=== PATIENT | female | born 1980 | race Caucasian/White ===

== ENCOUNTER 2018-11-01 12:02 | Emergency (ER) | payer SELFPAY ==
[~2018-11-01] VITALS: Ht 167.6 cm; Wt 81.0 kg
[2018-11-01 12:05] VITALS: BP 135/63; PULSE 83; RESP 18; Ht 167.6 cm; Wt 81.0 kg
== END 2018-11-01 14:55 | disposition left against medical advice (07) ==
LOC: E/R 12:02
DX: Z53.21 Procedure and treatment not carried out due to patient leaving prior to being seen by health care provider (principal)

== ENCOUNTER 2018-11-02 12:17 | Inpatient (IN) | payer MEDICAID ==
[~2018-11-02] VITALS: Ht 167.6 cm; Wt 81.0 kg
[2018-11-02] MEDS ORDERED: SOD CHLORIDE 0.9% 0 ML IV ONE (12:24)
--- NOTE | 2018-11-02 12:55 | ERD ---
ER Documentation Chief Complaint Chief Complaint PT HERE FOR BLOOD TRANSFUSION, LOW H/H, HX OF BILAT BREAST CA HPI This is a 38-year-old female presents for evaluation of anemia with a hemoglobin of 6.3, patient was recently diagnosed with bilateral breast cancer, she is not currently on chemotherapy. She denies history of anemia, she has had no chest pain or shortness of breath. She denies fever, no nausea vomiting ROS All systems reviewed and are negative except as per history of present illness. Medications Home Meds No Active Prescriptions or Reported Meds Allergies Allergies: Coded Allergies: aspirin (Verified Allergy, Unknown, 11/02/18) Physical Exam Vitals Vital Signs Date Temp Pulse Resp B/P (MAP) Pulse Ox O2 O2 Flow FiO2 Time Delivery Rate 11/02/18 98.2 76 11 127/76 100 Room Air 15:20 (93) 11/02/18 97.8 69 14 110/87 100 Room Air 15:00 (95) 11/02/18 70 18 118/87 100 Room Air 14:00 (97) 11/02/18 73 16 125/71 100 Room Air 13:00 (89) 11/02/18 98.0 77 18 131/66 100 12:20 (87) Physical Exam Const: No acute distress Head: Atraumatic Eyes: Normal Conjunctiva ENT: Normal External Ears, Nose and Mouth. Neck: Full range of motion. No meningismus. Resp: Clear to auscultation bilaterally Cardio: Regular rate and rhythm, no murmurs Abd: Soft, non tender, non distended. Normal bowel sounds Skin: No petechiae or rashes Back: No midline or flank tenderness Ext: No cyanosis, or edema Neur: Awake and alert Psych: Normal Mood and Affect Result Diagram: 11/02/18 1249 Results 24 hrs Laboratory Tests Test 11/02/18 12:49 11/02/18 12:54 Hemoglobin 6.3 g/dl Hematocrit 23.3 % Platelet Count 220 10^3/UL Prothrombin Time 13.2 Sec Prothrombin Time Ratio 1.0 INR International Normalized Ratio 0.99 Activated Partial Thromboplast Time 32.0 Sec Fibrinogen 332.0 mg/dl Iron Level 16 ug/dl Total Iron Binding Capacity 469 ug/dl Percent Iron Saturation 3 % SAT Ferritin 4.1 ng/ml Vitamin B12 Level 584 pg/ml Current Medications Medications Dose Sig/Uma Start Time Status Last (Trade) Ordered Route PRN Stop Time Admin Dose Reason Admin Sodium 0 ml @ 0 Q0M ONCE 11/02/18 DC 11/02/18 Chloride mls/hr IV 12:24 12:24 11/02/18 12:26 Procedures/MDM 38-year-old female presents for evaluation of anemia. On exam patient is afebrile, nontoxic-appearing, she appears in no acute distress, her hemoglobin was confirmed here, is that she will be transfused for 2 units of packed red blood cells. Patient will be admitted to medicine team, Dr. Patterson is the admitting physician. Departure Diagnosis: Primary Impression: Anemia Anemia type: unspecified type Qualified Codes: D64.9 - Anemia, unspecified Additional Impression: Breast cancer Breast location: unspecified site of breast Estrogen receptor status: unspecified Patient sex: female Laterality: bilateral Qualified Codes: C50.911 - Malignant neoplasm of unspecified site of right female breast; C50.912 - Malignant neoplasm of unspecified site of left female breast Condition: ELVIRA Wilkerson MD Nov 02, 2018 12:55
[2018-11-02 17:41] VITALS: Ht 167.6 cm; Wt 81.0 kg
--- NOTE | 2018-11-02 18:00 | NUR ---
ADMITTED PATIENT FROM ER VIA WHEELCHAIR AWAKE/ALERT/ORIENTED X 4, WITH COMPLAINT OF LOW HEMOGLOBIN. PLACED COMFORTABLY IN BED, VITALS STABLE. DENIES PAIN. CALLED DR MORALES WITH ORDER. DR CAIN AND DR CUEVAS NOTIFIED, DR SAMUELS NOTIFIED THRU LISA.
--- NOTE | 2018-11-02 19:39 | HP ---
DATE OF ADMISSION: 11/02/2018 CHIEF COMPLAINT: Generalized weakness and fatigue. HISTORY OF PRESENT ILLNESS: The patient is a 38-year-old female who was diagnosed with bilateral lorelei ast cancer on biopsy done as an outpatient. The patient is followed by Dr. Morales as an outpatient. The patient recently was noted to have anemia and her hemoglobin has dropped to 6.3 today. The patie nt is being admitted for blood transfusion because of symptomatic anemia. The patient denied any hea dache, dizziness, syncope. The patient gets short of breath on exertion and easily gets tired. The patient did not have any rectal bleed. No history of hematemesis. No history of menorrhagia. The p atient was sent to ER and was noted to have hemoglobin of 6.3. Iron panel also revealed iron deficie ncy anemia as evidenced by a ferritin of only 4.1. Vitamin B12 level is 584. The patient is being a dmitted for further evaluation and management. PAST MEDICAL HISTORY: As stated above. ALLERGIES: ASPIRIN. SOCIAL HISTORY: No smoking or alcohol. FAMILY HISTORY: Negative for breast or ovarian CA. MEDICATIONS PRIOR TO ADMISSION: None. PHYSICAL EXAMINATION: GENERAL: Revealed the patient to be awake, alert, fairly oriented. VITAL SIGNS: Temperature 97.3, pulse 65, respiration 12, blood pressure 109/55, O2 saturation 99% on room air. HEENT: Atraumatic, normocephalic. Conjunctivae are pale. Lids are normal. Oropharynx with pale mu cosa. NECK: Supple. No mass, no thyromegaly. CHEST: Fairly clear. CARDIOVASCULAR: S1, S2 normal. No murmur. ABDOMEN: Soft, nondistended, nontender. No palpable mass. EXTREMITIES: No leg edema. NEUROLOGIC: The patient is awake, alert, fairly oriented with no gross focal deficit. LABORATORY DATA: Hemoglobin 6.3, platelet 220. Iron 46, TIBC 469, percent saturation 3, ferritin 4. 1. B12 of 584. IMPRESSION: 1. Symptomatic iron deficiency anemia. 2. Bilateral breast cancer. PLAN: The patient will be admitted on medical floor. The patient will be given 2 units of PRBC due to symptomatic anemia. The patient also needs a Port-A-Cath for chemotherapy, which will be started next week. We will order stool for OB to rule out any occult GI bleed. Further recommendation will depend on the patient's hospital course and recommendation of Dr. Morales. We will continue to follow from a medical standpoint. Dictated By: WU ALMANZAR/MARLA Conf#: [id number] DID#: [id number] CC: WILIAM MORALES MD;*EndCC*
--- NOTE | 2018-11-02 19:56 | NUR ---
DR CHANDRA CAME AND SEEN PATIENT WITH ORDER TO TRANSFUSE 1 UNIT MORE OF PRBC, AND TO COLLECT STOOL FOR OB, ENDORSED TO INCOMING [facility]ERTY TURNER FOR CONTINUATION OF CARE. Addendum: 11/02/18 at 1958 by DANTE VALENCIA RN BODY ASSESSMENT DONE WITH NO SKIN ISSUES.
[2018-11-02 19:58] VITALS: BP 105/76; PULSE 68; RESP 18
[2018-11-02 22:00] VITALS: BP 120/60; PULSE 83; RESP 14
[2018-11-02 22:15] VITALS: BP 123/63; PULSE 83; RESP 14
--- NOTE | 2018-11-02 22:15 | NUR ---
RN NOTES: Patient started with second unit of PC. VS WNL, recorded accordingly. IV access RAC asymptomatic with blood return. Patient agreeble to transfusion, signed consent present in the chart.Blood checked with second RN/ Julius prior to transfusion. RN remained with the patient for monitoring . So far patient tolerated transfusion well.
[2018-11-02 22:30] VITALS: BP 126/65; PULSE 80; RESP 14
[2018-11-02 23:00] VITALS: BP 117/67; PULSE 74; RESP 15
[2018-11-02] MEDS: DIPHENHYDRAMINE 50 MG INJ IV PRN (23:15)
[2018-11-02] MEDS: ACETAMINOPHEN 500 MG TAB PO PRN (23:17)
--- NOTE | 2018-11-02 23:25 | NUR ---
RN NOTE: Patient started feeling some itching in the arms and feet and some discomfort. Blood transfusion stoped and dr Romero was immediately informed, he ordered Benadryl 25 mg IV PRN, order was carried out and patient reported immediate relief. VS remained stable all the times. No other symptoms reported or observed.
[2018-11-02 23:30] VITALS: BP 120/65; PULSE 75; RESP 14
--- NOTE | 2018-11-02 23:45 | NUR ---
RN NOTE: Resumed blood transfusion at rate 100 ml/h, patient tolerate it well. VSS.
[2018-11-03 00:30] VITALS: BP 111/60; PULSE 80; RESP 18
[2018-11-03 00:45] VITALS: BP 112/68; PULSE 78; RESP 18
[2018-11-03 01:00] VITALS: BP 104/62; PULSE 70; RESP 16
--- NOTE | 2018-11-03 01:00 | NUR ---
RN NOTE: @ 00:25 Patient complained on occasional SOB, anxiety, general discomfort. All vital signs are WNL, patient alert and oriented x4, patient been monitored closely. Blood transfusion stoped, dr Romero notified immediately, blood transfusion reaction protocol initiated. Due to adverse reaction patient received only 200 ml of the blood unit.
[2018-11-03 03:06] VITALS: BP 106/58; PULSE 69; RESP 18
[2018-11-03] MEDS: ACETAMINOPHEN 500 MG TAB PO PRN (06:57)
[2018-11-03 07:50] VITALS: BP 102/56; PULSE 67; RESP 18
--- NOTE | 2018-11-03 12:05 | PN ---
Date/Time of Note Date/Time of Note DATE: 11/03/18 TIME: 12:04 Assessment/Plan VTE Prophylaxis Risk score (from [facility]0 risk: 2 SCD applied (from [facility]): No SCD contraindicated: other Pharmacological prophylaxis: LMWH Lines/Catheters IV Catheter Type ([facility] Saline Lock Assessment/Plan Hospital Course 1. Symptomatic iron deficiency anemia. - s/p 2 units but Hemoglobin is still low 2. Bilateral breast cancer. - await surgery to see patient Result Diagram: 11/03/18 0144 11/03/18 0144 Results 24hrs Laboratory Tests Test 11/02/18 12:49 11/02/18 12:54 11/03/18 01:44 11/03/18 07:04 Hemoglobin 6.3 *L 7.2 L Hematocrit 23.3 L 25.1 L Platelet Count 220 195 Prothrombin Time 13.2 Prothrombin Time 1.0 Ratio INR International 0.99 Normalized Ratio Activated 32.[address] Time Fibrinogen 332.0 Iron Level 16 L Total Iron Binding 469 H Capacity Percent Iron 3 L Saturation Ferritin 4.1 L Vitamin B12 Level 584 White Blood Count 5.9 Red Blood Count 3.85 L Mean Corpuscular 65.2 L Volume Mean Corpuscular 18.7 L Hemoglobin Mean Corpuscular 28.7 L Hemoglobin Concent Red Cell 24.5 H Distribution Width Mean Platelet 10.5 H Volume Immature 0.200 Granulocytes % Neutrophils % Segmented 53 Neutrophils % (Manual) Lymphocytes % Lymphocytes % 39 (Manual) Reactive 1 H Lymphocytes % (Manual) Monocytes % Monocytes % 4 (Manual) Eosinophils % Eosinophils % 1 (Manual) Basophils % Basophils % 2 (Manual) Nucleated Red 2 H Blood Cells % Immature 0.010 Granulocytes # Neutrophils # Lymphocytes 2.3 (Manual) Lymphocytes # Reactive 0.0 Lymphocytes # Monocytes # Monocytes # 0.2 L (Manual) Eosinophils # Basophils # Basophils # 0.1 H (Manual) Nucleated Red Blood Cells # Platelet Estimate NORMAL Giant Platelets 3 H Polychromasia 2+ Hypochromasia 2+ Poikilocytosis 2+ Anisocytosis 2+ Microcytosis 2+ Target Cells 1+ Ovalocytes 1+ Schistocytes 1+ Urine Color YELLOW Urine Clarity CLEAR Urine pH 5.0 Urine Specific 1.024 [place] Urine Ketones TRACE A Urine Nitrite NEGATIVE Urine Bilirubin NEGATIVE Urine Urobilinogen NEGATIVE Urine Leukocyte NEGATIVE Esterase Urine Hemoglobin NEGATIVE Urine Glucose NEGATIVE Urine Total NEGATIVE Protein Sodium Level 141 Potassium Level 3.6 Chloride Level 109 Carbon Dioxide 21 Level Anion Gap 11 Blood Urea 14 Nitrogen Creatinine 0.74 Est Glomerular > 60 Filtrat Rate mL/min Glucose Level 78 Calcium Level 8.8 Total Bilirubin 0.5 Direct Bilirubin 0.00 Indirect Bilirubin 0.5 Aspartate Amino 22 Transf (AST/SGOT) Alanine 18 Aminotransferase ( ALT/SGPT) Alkaline 54 Phosphatase Total Protein 6.8 Albumin 3.7 Globulin 3.10 Albumin/Globulin 1.19 Ratio Lab Scanned Report REFERENCE LAB Subjective 24 Hr Interval Summary Free Text/Dictation Patient feels better, wants to go home Exam/Review of Systems Exam Vitals Vital Signs Date Temp Pulse Resp B/P (MAP) Pulse Ox O2 O2 Flow FiO2 Time Delivery Rate 11/03/18 97.8 67 18 102/56 98 Room Air 07:50 (71) Intake and Output 11/02/18 11/02/18 11/03/18 1414:59 22:59 06:59 IntakeIntake Total 550 ml 850 ml BalanceBalance 550 ml 850 ml Constitutional: well developed Head: normocephalic, atraumatic Neck: supple Respiratory: diminished breath sounds Gastrointestinal: soft, non-tender Extremities: normal pulses Results Results 24hrs Laboratory Tests Test 11/02/18 12:49 11/02/18 12:54 11/03/18 01:44 11/03/18 07:04 Hemoglobin 6.3 *L 7.2 L Hematocrit 23.3 L 25.1 L Platelet Count 220 195 Prothrombin Time 13.2 Prothrombin Time 1.0 Ratio INR International 0.99 Normalized Ratio Activated 32.[address] Time Fibrinogen 332.0 Iron Level 16 L Total Iron Binding 469 H Capacity Percent Iron 3 L Saturation Ferritin 4.1 L Vitamin B12 Level 584 White Blood Count 5.9 Red Blood Count 3.85 L Mean Corpuscular 65.2 L Volume Mean Corpuscular 18.7 L Hemoglobin Mean Corpuscular 28.7 L Hemoglobin Concent Red Cell 24.5 H Distribution Width Mean Platelet 10.5 H Volume Immature 0.200 Granulocytes % Neutrophils % Segmented 53 Neutrophils % (Manual) Lymphocytes % Lymphocytes % 39 (Manual) Reactive 1 H Lymphocytes % (Manual) Monocytes % Monocytes % 4 (Manual) Eosinophils % Eosinophils % 1 (Manual) Basophils % Basophils % 2 (Manual) Nucleated Red 2 H Blood Cells % Immature 0.010 Granulocytes # Neutrophils # Lymphocytes 2.3 (Manual) Lymphocytes # Reactive 0.0 Lymphocytes # Monocytes # Monocytes # 0.2 L (Manual) Eosinophils # Basophils # Basophils # 0.1 H (Manual) Nucleated Red Blood Cells # Platelet Estimate NORMAL Giant Platelets 3 H Polychromasia 2+ Hypochromasia 2+ Poikilocytosis 2+ Anisocytosis 2+ Microcytosis 2+ Target Cells 1+ Ovalocytes 1+ Schistocytes 1+ Urine Color YELLOW Urine Clarity CLEAR Urine pH 5.0 Urine Specific 1.024 [place] Urine Ketones TRACE A Urine Nitrite NEGATIVE Urine Bilirubin NEGATIVE Urine Urobilinogen NEGATIVE Urine Leukocyte NEGATIVE Esterase Urine Hemoglobin NEGATIVE Urine Glucose NEGATIVE Urine Total NEGATIVE Protein Sodium Level 141 Potassium Level 3.6 Chloride Level 109 Carbon Dioxide 21 Level Anion Gap 11 Blood Urea 14 Nitrogen Creatinine 0.74 Est Glomerular > 60 Filtrat Rate mL/min Glucose Level 78 Calcium Level 8.8 Total Bilirubin 0.5 Direct Bilirubin 0.00 Indirect Bilirubin 0.5 Aspartate Amino 22 Transf (AST/SGOT) Alanine 18 Aminotransferase ( ALT/SGPT) Alkaline 54 Phosphatase Total Protein 6.8 Albumin 3.7 Globulin 3.10 Albumin/Globulin 1.19 Ratio Lab Scanned Report REFERENCE LAB Medications Medication Current Medications Ferric Sodium Gluconate Complex 125 mg/Sodium Chloride 110 ml @ 110 mls/hr DAILY@1300 IVPB ; Start 11/03/18 at 13:00; Stop 11/07/18 at 13:59 Acetaminophen (Tylenol Tab) 500 mg Q4H PRN PO MILD PAIN(1-3)OR ELEVATED TEMP Last administered on 11/03/18at 06:57; Admin Dose 500 MG; Start 11/02/18 at 18:30 Diphenhydramine HCl (Benadryl) 25 mg Q6H PRN IV ITCHING Last administered on 11/02/18at 23:15; Admin Dose 25 MG; Start 11/02/18 at 23:30 CARLOS GUTIERREZ Nov 03, 2018 12:05
--- NOTE | 2018-11-03 14:00 | NUR ---
PATIENT WITH NO C/O DIZZINESS, NO SOB, NO NAUSEA/ VOMITING NOTED, DENIES PAIN. AMBULATING.
[2018-11-03] MEDS: SOD FERRIC GLUC COMPLX 125 MG in SOD CHLORIDE 0.9% 100 ML IVPB SCH (14:02)
--- NOTE | 2018-11-03 15:31 | CONS ---
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 # Severe anemia with iron deficiency -Patient responded to 1 unit of blood transfusion and had a reaction to the second unit. -Agree with 5 doses of IV iron. -The question is why she has this iron deficiency. She denies any bleeding or menorrhagia and there is no bleeding from the breast. The patient is not vegan. GI consult was ordered however patient is refusing any GI workup at this time and wants to leave hospital. -Discussed with patient that we need her Hgb to be at least 9 in order for her to receive chemotherapy as she will have cytopenias with the chemotherapy and we cannot have her drop to less than 7. # Clinical stage III left sided invasive ductal carcinoma with contralateral lymph node and LCIS (Er+/DC+/fgz1mco negative) -Once stable, the patient can proceed to TAC chemotherapy which can be given in the outpatient setting. -The medications are authorized as patient has an appointment with us on Monday or Monday. -Will discuss case with Dr. White. Thank you to Dr. Yo for allowing us to participate in the care of this patient. 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 She then finally started to develop discomfort from both breasts maintained at the left more than right. Due to these findings, imaging studies showed a 6 cm mass in the upper outer quadrant of the left breast and also a 1 cm abnormal calcification at 12 o'clock position of the right breast. Due to this finding, patient proceeded with biopsy in 09/2018 and was found to have: Left breast: moderately differentiated invasive ductal carcinoma with left axillary metastatic invasive cancer Right breast showed abnormal calcification with lobular carcinoma in situ and right axillary metastatic invasive ductal carcinoma ER 98% positive DC 87% positive Ki-67 borderline at 13% HER-2/bronson negative not amplified. The patient was then referred to Dr. White her primary oncologist and Dr. Yo for treatment planning. The plan will be for patient to receive neoadjuvant TAC x 3 cycles with reimaging then proceed to surgery and then follow with adjuvant chemotherapy, possible radiation and hormone blockade. The patient had labs done in the interim and found to have a hgb: 6.3 with severe iron deficiency and admitted. Patient denied any shortness of breath or chest pain and denied any severe fatigue. She denied any menorrhagia, melena, or hematochezia. Denies any hematuria. She states other than the breast pain, she feels normal. She received one unit PRBC in ER and responded well but had an "allergic" reaction to the second unit. She is receiving IV iron at this time. PMH: none PSxH: appendectomy. SH: Denies tobacco, ETOH, or IVDA. FH: Denies any family history of blood disorder or cancers. Meds: see list All: ASA Constitutional: no complaints Eyes: no complaints ENT: no complaints Respiratory: no complaints Cardiovascular: no complaints Gastrointestinal: no complaints Genitourinary: no complaints Musculoskeletal: no complaints Neurologic: no complaints Endocrine: no complaints Lymphatic: no complaints Psychological: no complaints Immunologic: no complaints Past Medical History Home Meds No Active Prescriptions or Reported Meds Medications Current Medications Ferric Sodium Gluconate Complex 125 mg/Sodium Chloride 110 ml @ 110 mls/hr DAILY@1300 IVPB Last administered on 11/03/18at 14:02; Admin Dose 110 MLS/HR; Start 11/03/18 at 13:00; Stop 11/07/18 at 13:59 Acetaminophen (Tylenol Tab) 500 mg Q4H PRN PO MILD PAIN(1-3)OR ELEVATED TEMP Last administered on 11/03/18at 06:57; Admin Dose 500 MG; Start 11/02/18 at 18:30 Diphenhydramine HCl (Benadryl) 25 mg Q6H PRN IV ITCHING Last administered on 11/02/18at 23:15; Admin Dose 25 MG; Start 11/02/18 at 23:30 Allergies: Coded Allergies: aspirin (Verified Allergy, Unknown, 11/02/18) Social History Smoking Status: Never smoker Exam/Review of Systems Exam Vitals Vital Signs Date Temp Pulse Resp B/P (MAP) Pulse Ox O2 O2 Flow FiO2 Time Delivery Rate 11/03/18 97.8 67 18 102/56 98 Room Air 07:50 (71) Intake and Output 11/02/18 11/02/18 11/03/18 1515:00 23:00 07:00 IntakeIntake Total 550 ml 850 ml BalanceBalance 550 ml 850 ml Constitutional: alert, oriented, well developed Psych: no complaints, nl mood/affect Head: normocephalic, atraumatic Eyes: nl conjunctiva, EOMI, nl lids, nl sclera, PERRL ENMT: nl external ears & nose, nl lips & teeth, nl nasal mucosa & septum Neck: supple, non-tender Respiratory: clear to auscultation, normal air movement Cardiovascular: regular rate and rhythm, nl pulses Gastrointestinal: soft, nl liver, spleen, non-tender Musculoskeletal: nl extremities to inspection, nl gait and stance Extremities: normal pulses Neurological: TEST HOLE DRILLER II-XII intact, nl mental status, nl speech, nl strength Skin: nl turgor; No rash or lesions Lymph: enlarged Additional Comments right axillary LN at about 2 cm. right palpable breast mass at about 6 cm with dimpling of nipple Results Result Diagram: 11/03/18 0144 11/03/18 0144 Results 24hrs Laboratory Tests Test 11/03/18 01:44 11/03/18 07:04 White Blood Count 5.9 Red Blood Count 3.85 L Hemoglobin 7.2 L Hematocrit 25.1 L Mean Corpuscular Volume 65.2 L Mean Corpuscular Hemoglobin 18.7 L Mean Corpuscular Hemoglobin Concent 28.7 L Red Cell Distribution Width 24.5 H Platelet Count 195 Mean Platelet Volume 10.5 H Immature Granulocytes % 0.200 Neutrophils % Segmented Neutrophils % (Manual) 53 Lymphocytes % Lymphocytes % (Manual) 39 Reactive Lymphocytes % (Manual) 1 H Monocytes % Monocytes % (Manual) 4 Eosinophils % Eosinophils % (Manual) 1 Basophils % Basophils % (Manual) 2 Nucleated Red Blood Cells % 2 H Immature Granulocytes # 0.010 Neutrophils # Lymphocytes (Manual) 2.3 Lymphocytes # Reactive Lymphocytes # 0.0 Monocytes # Monocytes # (Manual) 0.2 L Eosinophils # Basophils # Basophils # (Manual) 0.1 H Nucleated Red Blood Cells # Platelet Estimate NORMAL Giant Platelets 3 H Polychromasia 2+ Hypochromasia 2+ Poikilocytosis 2+ Anisocytosis 2+ Microcytosis 2+ Target Cells 1+ Ovalocytes 1+ Schistocytes 1+ Urine Color YELLOW Urine Clarity CLEAR Urine pH 5.0 Urine Specific [place] 1.024 Urine Ketones TRACE A Urine Nitrite NEGATIVE Urine Bilirubin NEGATIVE Urine Urobilinogen NEGATIVE Urine Leukocyte Esterase NEGATIVE Urine Hemoglobin NEGATIVE Urine Glucose NEGATIVE Urine Total Protein NEGATIVE Sodium Level 141 Potassium Level 3.6 Chloride Level 109 Carbon Dioxide Level 21 Anion Gap 11 Blood Urea Nitrogen 14 Creatinine 0.74 Est Glomerular Filtrat Rate mL/min > 60 Glucose Level 78 Calcium Level 8.8 Total Bilirubin 0.5 Direct Bilirubin 0.00 Indirect Bilirubin 0.5 Aspartate Amino Transf (AST/SGOT) 22 Alanine Aminotransferase (ALT/SGPT) 18 Alkaline Phosphatase 54 Total Protein 6.8 Albumin 3.7 Globulin 3.10 Albumin/Globulin Ratio 1.19 Lab Scanned Report REFERENCE LAB Medications Medication Current Medications Ferric Sodium Gluconate Complex 125 mg/Sodium Chloride 110 ml @ 110 mls/hr DAILY@1300 IVPB Last administered on 11/03/18at 14:02; Admin Dose 110 MLS/HR; Start 11/03/18 at 13:00; Stop 11/07/18 at 13:59 Acetaminophen (Tylenol Tab) 500 mg Q4H PRN PO MILD PAIN(1-3)OR ELEVATED TEMP Last administered on 11/03/18at 06:57; Admin Dose 500 MG; Start 11/02/18 at 18:30 Diphenhydramine HCl (Benadryl) 25 mg Q6H PRN IV ITCHING Last administered on 11/02/18at 23:15; Admin Dose 25 MG; Start 11/02/18 at 23:30 MARCELA STEVENSON DO Nov 03, 2018 15:31
--- NOTE | 2018-11-03 16:43 | NUR ---
LEFT MESSAGE TO DR GUTIERREZ THAT PATIENT WAS NOT CLEARED TO GO HOME BY DR CUEVAS AND DR STEVENSON, PATIENT WILL HAVE GI CONSULT .
--- NOTE | 2018-11-03 17:27 | NUR ---
Received report from Dori KOENIG at 2294 ; No changes from assessment this am ; Continue Plan of care. Needs attended.
--- NOTE | 2018-11-03 17:27 | NUR ---
REPORTS GIVEN TO LETA FOR CONTINUATION OF CARE.
[2018-11-03 20:20] VITALS: BP 102/57; PULSE 67; RESP 18
--- NOTE | 2018-11-03 20:24 | NUR ---
EOSS A&O x 4 ambulatory independent; DX Anemia ; S/P Blood transfusion Pt on ferrlicit ; Continue Plan of care.
--- NOTE | 2018-11-03 21:02 | CONS ---
DATE OF ADMISSION: 11/02/2018 DATE OF CONSULTATION: 11/03/2018 TYPE OF CONSULTATION: Surgical. Actually, the patient is being admitted from the emergency room because of anemia and consultation was made by Dr. Yo and I am covering for Dr. Yo. HISTORY OF PRESENT ILLNESS AND CHIEF COMPLAINT: This patient actually was seen in Dr. White's office planning for neoadjuvant chemotherapy for bilateral cancer of breast and then they found that the patient's hemoglobin is very low at 6.3 so the patient was transferred to emergency room to be admitted for further workup and also blood transfusion. The patient was seen yesterday in the afternoon in the emergency department. The patient was admitted to have evaluation and also a consultation by hematology, GI colleagues, internal medicine and surgery, and 2 units of packed cells ordered. The patient received 1 unit of packed cells. With the second unit the patient had some reaction including rashes, so they stopped it. The problem actually goes back to probably about a year ago when the patient at that time was in [place] and she is a [employer] living in [place]. She noticed some abnormality and pain and deformity of the breast then soon, she came to the [facility] and she lived here and she worked here, and eventually she had too much pain, so she went see Dr. Yo about a month ago in [facility]. Clinically, she had cancer of breast and the biopsy was proved to be cancer, so considering the extensive stage of the cancer, which is locally advanced on the left side and also to some extent locally advanced on the right side, the patient is scheduled to have chemotherapy, and as mentioned, they found out that the patient is anemic and the patient has been admitted. PAST MEDICAL HISTORY: She denies any past medical problems. SOCIAL HISTORY: No smoking or alcohol. ALLERGIES: ASPIRIN. FAMILY HISTORY: Negative for cancer of breast or ovaries. PHYSICAL EXAMINATION GENERAL: The patient is alert, awake and oriented x3. VITAL SIGNS: Temperature today is 98.4, heart rate 69, respiration 18, blood pressure 102/56, saturation 98% on room air. HEENT: Pale conjunctivae, pale mucosa of the tongue and oropharynx, no mass in the neck area, no mass in the supraclavicular fossa. HEART: Regular. LUNGS: Clear. BREASTS: There is very obvious deformity of the left breast. It is shrunken due to the advanced tumor that became adherent to the skin and also appears to be adherent underneath to the pectoralis muscles. On the right side, the breast has no gross deformity, but there is a tumor palpated at about the 12 o'clock position which appears to be adherent to the underlying tissue including pectoralis muscle. AXILLAE: On the right side, I cannot feel axillary tumor or lymph nodes. On the left side, probably there are several lymph nodes positive. ABDOMEN: Soft. Bowel sound is present. EXTREMITIES: Lower extremities has no pitting edema. LABORATORY DATA: On admission last night, hemoglobin was 6.3, hematocrit 23.3, platelet count is 220. Today, repeated after 1 unit of blood, the WBC is 5900, hemoglobin is only 7.2, hematocrit 25.1. Of interest and note is that all the indices of the blood cells are low. Mean corpuscular volume (MCV) is 65.2, which is low, MCH is low at 18.7, MCHC is low at 28.7. RDW is elevated at 24.5. Chemistry: Serum iron is 16, which very low. TIBC is 469, which is high. Saturation is only 3% and ferritin is 421, which is low. Otherwise, the rest of chemistry appears normal. Coagulation profile: INR is 0.99, PTT is 22, which is normal. Urinalysis showed no hematuria, no evidence of infection. IMPRESSION: This is a 38-year-old female who has presented with a neglected very advanced bilateral cancer of the breast, left more than right. She is not . She has no children. She is supposed to have chemotherapy started very soon, but she was found to be very anemic. The indices of the red blood cells is compatible with chronic iron deficiency anemia. Therefore, we have to find out if the patient is losing blood somewhere, therefore there is indication for endoscopy and colonoscopy for this patient. She states that her period is only 3 days and is not very heavy; therefore, the possibility that she has become anemic because of the period is very low. Of course, the patient admitted that she has not been eating red meat that much, but I doubt that this could have caused so much depletion of her iron sources and reserves to make her to become so iron deficiency anemic. Therefore, a consultation has been made with drywall applicator/oncologist, Dr. Burns, also with GI colleague to evaluate the patient and most probably to do endoscopy and colonoscopy to find out possible source of blood loss. The medical service already has started patient on IV iron infusion and patient needs to be kept in the hospital for further workup and eventually to have a Port-A-Cath placed for future chemotherapy. I discussed the plan with Dr. Yo and he agrees with the plan. Dictated By: DESIREE CUEVAS MD PS/NTS Conf#: [id number] DID#: [id number] CC: WILIAM YO MD; WU CAIN MD;*EndCC* MTDD
[2018-11-04 02:05] VITALS: BP 99/55; PULSE 68; RESP 18
--- NOTE | 2018-11-04 05:40 | NUR ---
RN EOSS NOTES: Patient has received 1st bag of 5 doses of IV Ferrlecit infusion yesterday with latest hgb=7.1 Denies weakness nor light-headedness, has ambulated several times in room and once in hallway this shift. No visible signs of bleeding observed overnight. Has not had a BM over the last 3days with pending collection of stool for FOB test. Spoke to RN lengthily in room last night, encouraged to vent feelings-wishes to be allowed by her MD to be discharged home later today. Verbalized she is scheduled to have chemotherapy OP to outside facility & if Port access placement has not been done yet @[facility], her Oncologist staff assured her chemo may be given via IV route. Anticipating CBC result today and to speak to her MD on rounds Monday. Does not want to stay another night here in [facility]. Further health teachings discussed @bedside including chemo side effects to anticipate since this will be her 1st chemo regimen/infusion. Interventions to manage anemia included. She verbalized understanding &appreciation but does appear to be bored with this admission. tester waste disposal leakage aware, will endorse plan of care to incoming day RN for ff-up.
[2018-11-04 08:00] VITALS: BP 100/57; PULSE 71; RESP 16
--- NOTE | 2018-11-04 12:42 | PN ---
Date/Time of Note Date/Time of Note DATE: 11/04/18 TIME: 12:39 Assessment/Plan VTE Prophylaxis [place] [facility]: 2 SCD applied [place] [facility] No SCD contraindicated: other Pharmacological prophylaxis: LMWH Lines/Catheters IV Catheter Type (from [facility]): Saline Lock Assessment/Plan Hospital Course 1. Symptomatic iron deficiency anemia. - s/p 2 units but Hemoglobin is still low 2. Bilateral breast cancer. - await surgery to see patient Result Diagram: 11/04/18 0426 11/04/18 0426 Results 24hrs Laboratory Tests Test 11/04/18 04:26 White Blood Count 6.4 Red Blood Count 3.77 L Hemoglobin 7.1 L Hematocrit 24.7 L Mean Corpuscular Volume 65.5 L Mean Corpuscular Hemoglobin 18.8 L Mean Corpuscular Hemoglobin Concent 28.7 L Red Cell Distribution Width 24.7 H Platelet Count 182 Mean Platelet Volume Immature Granulocytes % 0.200 Neutrophils % 56.8 Lymphocytes % 31.2 Monocytes % 8.5 Eosinophils % 2.5 Basophils % 0.8 Nucleated Red Blood Cells % 0.0 Immature Granulocytes # 0.010 Neutrophils # 3.6 Lymphocytes # 2.0 Monocytes # 0.5 Eosinophils # 0.2 Basophils # 0.1 Nucleated Red Blood Cells # 0.0 Sodium Level 143 Potassium Level 3.6 Chloride Level 106 Carbon Dioxide Level 24 Anion Gap 13 Blood Urea Nitrogen 10 Creatinine 0.70 Est Glomerular Filtrat Rate mL/min > 60 Glucose Level 83 Calcium Level 8.5 Subjective 24 Hr Interval Summary Free Text/Dictation Patient with breast cancer admitted for severe anemia. Patient received only 1 unit of pRBC prior to developing a reaction. Patient is only IV iron but she is adamant about going against medical advice. Exam/Review of Systems Exam Vitals Vital Signs Date Temp Pulse Resp B/P (MAP) Pulse Ox O2 O2 Flow FiO2 Time Delivery Rate 11/04/18 97.4 68 18 99/55 (70) 97 02:05 11/03/18 Room Air 07:50 Intake and Output 11/03/18 11/03/18 11/04/18 1515:00 23:00 07:00 IntakeIntake Total 400 ml 610 ml OutputOutput Total 400 ml BalanceBalance 400 ml 610 ml -400 ml Constitutional: well developed Head: normocephalic, atraumatic Neck: supple Respiratory: diminished breath sounds Cardiovascular: regular rate and rhythm Gastrointestinal: soft, non-tender Extremities: normal pulses Results Results 24hrs Laboratory Tests Test 11/04/18 04:26 White Blood Count 6.4 Red Blood Count 3.77 L Hemoglobin 7.1 L Hematocrit 24.7 L Mean Corpuscular Volume 65.5 L Mean Corpuscular Hemoglobin 18.8 L Mean Corpuscular Hemoglobin Concent 28.7 L Red Cell Distribution Width 24.7 H Platelet Count 182 Mean Platelet Volume Immature Granulocytes % 0.200 Neutrophils % 56.8 Lymphocytes % 31.2 Monocytes % 8.5 Eosinophils % 2.5 Basophils % 0.8 Nucleated Red Blood Cells % 0.0 Immature Granulocytes # 0.010 Neutrophils # 3.6 Lymphocytes # 2.0 Monocytes # 0.5 Eosinophils # 0.2 Basophils # 0.1 Nucleated Red Blood Cells # 0.0 Sodium Level 143 Potassium Level 3.6 Chloride Level 106 Carbon Dioxide Level 24 Anion Gap 13 Blood Urea Nitrogen 10 Creatinine 0.70 Est Glomerular Filtrat Rate mL/min > 60 Glucose Level 83 Calcium Level 8.5 Medications Medication Current Medications Ferric Sodium Gluconate Complex 125 mg/Sodium Chloride 110 ml @ 110 mls/hr DAILY@1300 IVPB Last administered on 11/03/18at 14:02; Admin Dose 110 MLS/HR; Start 11/03/18 at 13:00; Stop 11/07/18 at 13:59 Acetaminophen (Tylenol Tab) 500 mg Q4H PRN PO MILD PAIN(1-3)OR ELEVATED TEMP Last administered on 11/03/18at 06:57; Admin Dose 500 MG; Start 11/02/18 at 18:30 Diphenhydramine HCl (Benadryl) 25 mg Q6H PRN IV ITCHING Last administered on 11/02/18at 23:15; Admin Dose 25 MG; Start 11/02/18 at 23:30 CARLOS GUTIERREZ Nov 04, 2018 12:42
[2018-11-04] MEDS ORDERED: SOD CHLORIDE 0.9% 250 ML IV* ONE (12:54)
[2018-11-04] MEDS ORDERED: DIPHENHYDRAMINE 25 MG CAP PO ONE (13:00)
[2018-11-04] MEDS ORDERED: PEG/ELECTROLYTES 4L BTL PO ONE (14:30)
[2018-11-04] MEDS: SOD FERRIC GLUC COMPLX 125 MG in SOD CHLORIDE 0.9% 100 ML IVPB SCH (14:46)
[2018-11-04] MEDS: MINERAL OIL 30ML CUP PO SCH ×2 (14:48→21:13)
--- NOTE | 2018-11-04 14:54 | CONS ---
DATE OF ADMISSION: 11/02/2018 DATE OF CONSULTATION: TYPE OF CONSULTATION: Gastroenterology. Dear Dr. Yo: Thank you for asking me to see Ms. Hanna in GI consultation. HISTORY OF PRESENT ILLNESS: The patient is a 38-year-old black female who at this time is admitted t o the hospital because of severe anemia. She is found to have bilateral breast cancer on the mammogr am. From the anemia standpoint, she has no history of nausea, vomiting or GI bleeding, no weight los s, no abdominal pain. Stool is brown in color, although will be checked is not clear at this t jesenia. REVIEW OF SYSTEM: Totally unremarkable. SOCIAL HISTORY: The patient does not smoke or drink. FAMILY HISTORY: Unremarkable. PHYSICAL EXAMINATION: GENERAL: The patient is a 38-year-old black female who at this time is alert. She is average-built. VITAL SIGNS: She is afebrile. Blood pressure is 99/55. CARDIOVASCULAR: Normal heart sounds. RESPIRATORY: Normal breath sounds. ABDOMEN: Shows soft abdomen with no palpable masses, no tenderness, no distention. LABORATORY WORKUP: Hemoglobin is 7.1, it was 6.3 originally on 11/02/2018, WBC count 6400, platelet count 282,000. The potassium is 3.6, BUN is 10, creatinine is 0.7. Bilirubin 0.5, AST 22, ALT 18, a lkaline phosphatase 54. DIAGNOSTIC DATA: Chest x-ray shows evidence of prior left-sided mastectomy. CLINICAL IMPRESSION: The patient presenting with history of severe anemia, rule out peptic ulcer dis ease, colorectal neoplasm, et cetera. She is known to have bilateral breast cancer. She did not com plain about left-sided mastectomy, but the chest x-ray shows left-sided mastectomy, but I would have to confirm with her. PLAN: I recommend upper endoscopy and lower endoscopy and the patient agreed. Once again, Dr. Yo, thank you for this consultation. Dictated By: LIANET AGRAWAL/MARLA Conf#: [id number] DID#: [id number] CC: WILIAM YO MD; WU CAIN MD;*EndCC*
--- NOTE | 2018-11-04 15:08 | PN ---
DATE: 11/04/2018 SUBJECTIVE: No new complaint. OBJECTIVE: GENERAL: Awake, alert, oriented. VITAL SIGNS: Temperature maximum 97.4, heart rate 68, respiration 18, blood pressure 99/55, saturation 97% room air. LABORATORY DATA: Today, WBC 6400 with 57% segmented, hemoglobin is 7.1, hematocrit 24.7. DIAGNOSTIC DATA: Chest x-ray: No acute cardiopulmonary process. ASSESSMENT AND PLAN: This is a 38-year-old female who has presented with bilateral cancer of the breast very locally advanced left side and possibly right side. Apparently, it has been on estrogen and progesterone positive and HER-2 negative. The patient will have PET/CT scan next week. Meanwhile, the patient was found to have severe anemia, iron deficiency. The patient has received 1 unit of blood and on the second unit, patient had reaction, so that was discontinued . today the internal medicine colleague has ordered another unit of blood because she insists that she wants to have chemotherapy as soon as possible. Also, the patient is getting IV iron compounds on daily basis. I had a long discussion the patient and convinced her to have GI colleagues see her and have endoscopy and colonoscopy to make sure that she does not have any lesion or any source of blood loss in the GI system, otherwise she is not bleeding from breast and her period is not abnormal and she does not have menometrorrhagia. The patient accepted to have endoscopy and Dr. Trevizo already saw the patient and is planning to do endoscopy and colonoscopy tomorrow. Further recommendations will be made based on the clinical course and findings on the GI endoscopy. Dictated By: DESIREE CUEVAS MD PS/NTS Conf#: [id number] DID#: [id number] CC: WILIAM MORALES MD; WU CAIN MD;*EndCC* MTDD
[2018-11-04] MEDS: ACETAMINOPHEN 500 MG TAB PO PRN ×2 (15:21→21:15)
[2018-11-04 16:30] VITALS: BP 103/59; PULSE 71; RESP 16
--- NOTE | 2018-11-04 16:37 | NUR ---
Patient is a/o x4, VS within acceptable range.denies pain at present time Hg 7.1. Patient agreed to transfuse 1 unit of PRBC, Patient was premedicated with Benadryl and Tylenol. Patient educated procedure of blood transfusion, potential benefits and risk of treatment. Patient verbalized understanding of teaching. started first unit of PRBC. Will continue to monitor as per protocol.
--- NOTE | 2018-11-04 19:14 | NUR ---
BLOOD TRANSFUSION IN PROCESS, NO C/O ANY DISCOMFORT,VS STABLE. PATIENT STARTED ON BOWEL PREPARATION. PATIENT IS SCHEDULED FOR EGD/COLONOSCOPY FOR TOMORROW.
[2018-11-04 19:15] VITALS: BP 121/70; PULSE 61; RESP 16
[2018-11-04 19:30] VITALS: BP 100/68; PULSE 64; RESP 17
--- NOTE | 2018-11-04 19:30 | NUR ---
RECEIVED PT FOR CONTINUATION OF CARE. BLOOD TRANSFUSION JUST FINISHES, NO REACTION NOTED. PT ON PREPARATION FOR COLONOSCOPY NOW. WILL MONITOR CLOSELY.
[2018-11-04 20:30] VITALS: BP 101/67; PULSE 62; RESP 16
[2018-11-05] VITALS (12 sets, daily range): BP systolic 99–121; BP diastolic 55–73; PULSE 48–70; RESP 13–22
--- NOTE | 2018-11-05 06:05 | NUR ---
EOSS. PT IN STABLE CONDITION. PT RECEIVED YESTERDAY 1 UNIT OF PRBC, NO REACTION DURING TRANSFUSION. PT WILL HAVE EGD AND COLONOSCOPY TODAY. NPO. VS STABLE. NO TIME OF PROCEDURE YET. CONTINUE PLAN OF CARE.
--- NOTE | 2018-11-05 08:37 | CONS ---
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 # Severe anemia with iron deficiency -Patient responded to 1 unit of blood transfusion and had a reaction to the second unit. -continue with 5 doses of IV iron. -The question is why she has this iron deficiency. She denies any bleeding or menorrhagia and there is no bleeding from the breast. The patient is not vegan. EGD / Colonoscopy scheduled for today -Discussed with patient that we need her Hgb to be at least 9 in order for her to receive chemotherapy as she will have cytopenias with the chemotherapy and we cannot have her drop to less than 7. # Clinical stage III left sided invasive ductal carcinoma with contralateral lymph node and LCIS (Er+/CT+/bih5ihl negative) -pt scheduled for out patient PET CT on . there is a high likelihood that this has already metastasized -Once stable, the patient can proceed to TAC chemotherapy which can be given in the outpatient setting. -The medications are authorized as patient has an appointment with us on Monday or Monday. -Will discuss case with Dr. White. Thank you to Dr. Yo for allowing us to participate in the care of this patient. Consultation Date/Type/Reason Admit Date/Time Nov 02, 2018 at 15:52 Initial Consult Date 11/03/18 Type of Consult oncology Reason for Consultation Her 2+ Breast cancer Requesting Provider: WILIAM YO MD Date/Time of Note DATE: 11/05/18 TIME: 08:33 24 HR Interval Summary Free Text/Dictation pt has started IV iron and received a blood transfusion. pt is scheduled for EGD and colonoscopy today Exam/Review of Systems Exam Vitals Vital Signs Date Temp Pulse Resp B/P (MAP) Pulse Ox O2 O2 Flow FiO2 Time Delivery Rate 11/05/18 97.5 66 18 108/63 98 07:54 (78) 11/05/18 Room Air 01:22 Intake and Output 11/04/18 11/04/18 11/05/18 1515:00 23:00 07:00 IntakeIntake Total 710 ml 1000 ml BalanceBalance 710 ml 1000 ml Constitutional: alert, oriented Psych: no complaints Head: normocephalic Eyes: nl conjunctiva ENMT: nl external ears & nose Neck: supple Respiratory: clear to auscultation Cardiovascular: regular rate and rhythm Musculoskeletal: nl extremities to inspection Skin: other (L breast inverted 2/2 tumor ) Results Result Diagram: 11/05/18 0424 11/04/18 1523 Results 24hrs Laboratory Tests Test 11/04/18 15:23 11/04/18 23:35 11/05/18 04:24 Sodium Level 140 Potassium Level 3.7 Chloride Level 106 Carbon Dioxide Level 24 Anion Gap 10 Blood Urea Nitrogen 11 Creatinine 0.61 Est Glomerular Filtrat Rate mL/min > 60 Glucose Level 81 Calcium Level 8.9 Stool Occult Blood NEGATIVE White Blood Count 6.3 Red Blood Count 3.98 L Hemoglobin 7.9 L Hematocrit 26.6 L Mean Corpuscular Volume 66.8 L Mean Corpuscular Hemoglobin 19.8 L Mean Corpuscular Hemoglobin Concent 29.7 L Red Cell Distribution Width 26.3 H Platelet Count 190 Mean Platelet Volume Immature Granulocytes % 0.300 Neutrophils % 53.4 Lymphocytes % 36.0 Monocytes % 6.8 Eosinophils % 2.5 Basophils % 1.0 Nucleated Red Blood Cells % 0.0 Immature Granulocytes # 0.020 Neutrophils # 3.4 Lymphocytes # 2.3 Monocytes # 0.4 Eosinophils # 0.2 Basophils # 0.1 Nucleated Red Blood Cells # 0.0 Medications Medication Current Medications Ferric Sodium Gluconate Complex 125 mg/Sodium Chloride 110 ml @ 110 mls/hr DAILY@1300 IVPB Last administered on 11/04/18at 14:46; Admin Dose 110 MLS/HR; Start 11/03/18 at 13:00; Stop 11/07/18 at 13:59 Acetaminophen (Tylenol Tab) 500 mg Q4H PRN PO MILD PAIN(1-3)OR ELEVATED TEMP Last administered on 11/04/18at 21:15; Admin Dose 500 MG; Start 11/02/18 at 18:30 Diphenhydramine HCl (Benadryl) 25 mg Q6H PRN IV ITCHING Last administered on 11/02/18at 23:15; Admin Dose 25 MG; Start 11/02/18 at 23:30 Mineral Oil (Mineral Oil) 30 ml TID PO Last administered on 11/04/18at 21:13; Admin Dose 30 ML; Start 11/04/18 at 13:30 LESVIA SAMUELS M.D. Nov 05, 2018 08:37
[2018-11-05] MEDS: MINERAL OIL 30ML CUP PO SCH ×3 (09:13→21:00)
--- NOTE | 2018-11-05 12:32 | PREAC ---
Date/Time of Note Date/Time of Note DATE: 11/05/18 TIME: 12:30 Anesthesia Eval and Record Evaluation Time Pre-Procedure Interview DATE: 11/05/18 TIME: 12:30 Age 38 Sex female NPO: 8 hrs Preoperative diagnosis SEVERE ANEMIA Planned procedure EGD AND COLON Past Medical History Past Medical History: Includes Musculoskeletal: Other (BILATERAL BREAST CANCER) Heme: Anemia Surgery & Anesthesia Issues No known issue Meds Anticoagulation: No Beta Sanjuana within 24 hr: No Reason Beta Sanjuana not given: Pt. not on B-Sanjuana No Active Prescriptions or Reported Meds Current Medications Ferric Sodium Gluconate Complex 125 mg/Sodium Chloride 110 ml @ 110 mls/hr DAILY@1300 IVPB Last administered on 11/04/18at 14:46; Admin Dose 110 MLS/HR; Start 11/03/18 at 13:00; Stop 11/07/18 at 13:59 Acetaminophen (Tylenol Tab) 500 mg Q4H PRN PO MILD PAIN(1-3)OR ELEVATED TEMP Last administered on 11/04/18at 21:15; Admin Dose 500 MG; Start 11/02/18 at 18:30 Diphenhydramine HCl (Benadryl) 25 mg Q6H PRN IV ITCHING Last administered on 11/02/18at 23:15; Admin Dose 25 MG; Start 11/02/18 at 23:30 Mineral Oil (Mineral Oil) 30 ml TID PO Last administered on 11/05/18at 09:13; Admin Dose 30 ML; Start 11/04/18 at 13:30 Meds reviewed: Yes Allergies Coded Allergies: aspirin (Verified Allergy, Unknown, 11/02/18) Allergies Reviewed: Yes Labs/Studies Labs Reviewed: Reviewed by anesthesiologist Result Diagram: 11/05/18 0424 11/04/18 1523 Laboratory Tests 11/04/18 15:23 11/05/18 04:24 test: Negative Pre-procedure Exam Last vitals Vital Signs Date Temp Pulse Resp B/P (MAP) Pulse Ox O2 O2 Flow FiO2 Time Delivery Rate 11/05/18 97.5 66 18 108/63 98 07:54 (78) 11/05/18 Room Air 01:22 Airway: Adequate mouth opening, Adequate thyromental dist Mallampati: Mallampati I Teeth: Normal Lung: Normal Heart: Normal ASA Physical Status ASA physical status: 3 Emergency: None Planned Anesthetic General/MAC: MAC Planned Pain Management Parenteral pain med Pre-operative Attestations Prior to commencing anesthesia and surgery, the patient was re-evaluated, there was verification of: *The patient's identity *The results of appropriate recent lab work and preoperative vital signs *The above evaluation not changing prior to induction *Anesthetic plan, risk benefits, alternative and complications discussed with patient/family; questions answered; patient/family understands, accepts and wishes to proceed. FLORINDA WILKINSON Nov 05, 2018 12:31
[2018-11-05] MEDS ORDERED: LIDOCAINE 2% (SDV) 5 ML INJ ONE (12:33)
[2018-11-05] MEDS ORDERED: PROPOFOL 40 ML ONE (12:33)
[2018-11-05] MEDS ORDERED: EPHEDrine SULFATE 50 MG/5 ML SYG IV PRN (13:00)
[2018-11-05] MEDS ORDERED: hydrALAzine 20 MG INJ IV PRN (13:00)
[2018-11-05] MEDS ORDERED: LABETALOL HCL 20MG INJ IV PRN (13:00)
[2018-11-05] MEDS ORDERED: FENTAnyl 50 MCG/ML VIAL IV PRN (13:00)
[2018-11-05] MEDS ORDERED: ONDANSETRON 4 MG INJ IV PRN (13:00)
--- NOTE | 2018-11-05 13:44 | PAC ---
Date/Time of Note Date/Time of Note DATE: 11/05/18 TIME: 13:44 Post-Anesthesia Notes Post-Anesthesia Note Last documented vital signs Vital Signs Date Temp Pulse Resp B/P (MAP) Pulse Ox O2 O2 Flow FiO2 Time Delivery Rate 11/05/18 Nasal 4 13:13 Cannula 11/05/18 97.5 66 18 108/63 98 13:35 (78) Activity: WNL Respiratory function: WNL Cardiovascular function: WNL Mental status: Baseline Pain reasonably controlled: Yes Hydration appropriate: Yes Nausea/Vomiting absent: Yes FLORINDA WILKINSON Nov 05, 2018 13:44
[2018-11-05] MEDS ORDERED: CEFAZOLIN 1 GM/50 ML (PMX) 50 ML IVPB ONE ×3 (14:00→15:05)
[2018-11-05] MEDS ORDERED: POLYMYXIN/BACITRACIN 1L IRRIG IRR ONE (14:00)
--- NOTE | 2018-11-05 14:02 | NUR ---
PACU NOTES: AWAKE AND ALERT. S/P EGD W/ BIOPSY AND COLONOSCOPY. PER NOTES PATIENT HAS POOR PREPARATION. DX: ESOPHAGITIS. AND RPT COLONOSCOPY. PATIENT NO COMPLAIN OF PAIN. ADVANCED DIET TO REGULAR. FROM PACU WILL BE GOING TO RADIOLOGY FOR PERMA CATH PLACEMENT. EXPLAINED TO PATIENT AND SHE IS AWARE. ASSISTED TO THE BATHROOM. 51 115/69 100% ROOM AIR 12 TEMP 98.0
--- NOTE | 2018-11-05 14:19 | NUR ---
ANESTHESIA IN: 1240 ANESTHESIA OUT: 1337 PACU IN: 1332 PACU OUT: 1419
[2018-11-05] MEDS ORDERED: FENTAnyl 50 MCG/ML VIAL ONE (14:20)
[2018-11-05] MEDS ORDERED: DIPHENHYDRAMINE 50 MG INJ ONE (14:21)
[2018-11-05] MEDS ORDERED: HEPARIN 1000 UNITS/ML 10 ML INJ ONE (14:41)
[2018-11-05] MEDS ORDERED: LIDOCAINE 1%/EPI (1:100,000) (MDV) 20 ML ONE (14:41)
[2018-11-05] MEDS: SOD FERRIC GLUC COMPLX 125 MG in SOD CHLORIDE 0.9% 100 ML IVPB SCH (15:56)
--- NOTE | 2018-11-05 16:18 | NUR ---
NIRAJ CATH PROCEDURE- PT TO RADIOLOGY FOR NIRAJ CATH PLACEMENT FROM PACU. PT HAD ATTEMPTED COLONOSCOPY TODAY WITH SEDATION. PT A/O X'S 4. NO C/O PAIN. PT'S HR 46-48 ON ENGINEERING GROUP LEADER. NO DISTRESS NOTED. DR GILLETTE NOTIFIED BY THIS NURSE REGARDING HR-40'S. DR GILLETTE REQUEST PROCEDURE BE MODIFIED FOR TOMORROW TILL HR RATE STABILIZES. PT INFORMED OF DR GILLETTE TO MODIFY PROCEDURE TILL TOMORROW DUE TO HR. PT VERBALIZED UNDERSTANDING. PT'S PRIMARY NURSE LIBERTY DELA CRUZ NOTIFIED OF MODIFICATION OF PROCEDURE.
--- NOTE | 2018-11-05 16:20 | NUR ---
RN NOTES CALLED DR BUTT FOR ORDER CLARIFICATION FOR POSSIBLE COLONOSCOPY FOR TOMORROW. DR BUTT STATES THAT HE IS NOT PLANNING ON COLONOSCOPY AND PT MAY HAVE REGULAR DIET, DR CAIN ALSO INFORMED.
--- NOTE | 2018-11-05 17:10 | PN ---
DATE: 11/05/2018 SUBJECTIVE: Apparently, the patient was downstairs for endoscopy, colonoscopy and per report, though the official report is not available in the computer, but so far the EGD has been showing some esophagitis, otherwise negative. Colonoscopy has been done, but has not been very successful Because the patient has not had a good bowel prep. Per report of the nurse, the patient is supposed to have repeat colonoscopy after having a bowel prep today and tonight. Also later on after endoscopy and colonoscopy, the patient was transferred to radiology to have a Port-A-Cath placed, but as per report the patient developed bradycardia and they cancelled the procedure and deferred it for tomorrow. OBJECTIVE: GENERAL: Alert, awake, oriented. VITAL SIGNS: Right now, blood pressure 130/75, heart rate 72 regular, respirations 16. HEART: Regular. LUNGS: Clear. ABDOMEN: Soft. EXTREMITIES: Legs are negative. LABORATORY DATA: Today, WBC 6300, hemoglobin 7.9, hematocrit 26.6. Chemistry: Sodium, potassium, BUN, creatinine within normal limits. Other colleagues including Dr. Shayla Burns, the hematology/oncology has seen the patient as well. PLAN: Apparently, the plan is to finish the workup of the patient to rule out any possible cause of GI bleeding causing severe iron deficiency anemia and then place Port-A-Cath by radiologist and if the patient is stable, then the hematology/oncology will start the patient on chemotherapy and after adequate time of chemotherapy, the patient will be seen by Dr. Yo again and will proceed with mastectomy. Dictated By: DESIREE CUEVAS MD PS/NTS Conf#: [id number] DID#: [id number] CC: WU CAIN MD; WILIAM YO MD;*EndCC* MTDD
--- NOTE | 2018-11-05 18:00 | NUR ---
RN NOTES PT IS STABLE, NO C/O PAIN OR DISCOMFORT. PT HAD EGD, COLONOSCOPY WAS NOT DONE DUE TO POOR BOWEL PREP, NO PLAN FOR FURTHER PROCEDURE. PT STARTED ON REGULAR DIET AND TOLERATED WELL, PT WILL BE NPO FOR PORT-A-CATH PLACEMENT TOMORROW. PT NEEDS 1 UNIT OF PRBC, WILL ENDORSE TO NIGHT NURSE.
--- NOTE | 2018-11-05 21:00 | NUR ---
PREMEDICATED WITH TYLENOL AND BENADRYL 25 MG IV BEFORE BLOOD TRANSFUSION.
[2018-11-05] MEDS: DIPHENHYDRAMINE 50 MG INJ IV PRN (21:01)
[2018-11-05] MEDS: ACETAMINOPHEN 500 MG TAB PO PRN (21:01)
--- NOTE | 2018-11-05 21:30 | NUR ---
STARTED TRANSFUSION OF 1 UNIT OF PRBC. WILL MONITOR CLOSELY,
[2018-11-06 00:10] VITALS: BP 103/57; PULSE 55; RESP 18
--- NOTE | 2018-11-06 00:10 | NUR ---
BLOOD TRANSFUSION COMPLETED, NO REACTION NOTED, VS STABLE.
--- NOTE | 2018-11-06 00:47 | PN ---
DATE: 11/05/2018 SUBJECTIVE: Follow up on iron deficiency anemia and bilateral breast cancer. The patient this clinton zhou had EGD and colonoscopy. Colonoscopy preparation was suboptimal; however, EGD revealed mild esoph agitis. Colonoscopy grossly was suboptimal, although whatever was seen did not have any abnormality. Dr. Trevizo is recommending a repeat colonoscopy down the road. The patient still has generalized w eakness and hemoglobin remains below 8. The patient would need to have a hemoglobin around 9 to get Port-A-Cath as well as chemotherapy as per oncology. OBJECTIVE: GENERAL: Reveals the patient to be awake, alert, fairly oriented. VITAL SIGNS: Temperature 98.6, pulse 60, respirations 16, blood pressure 116/66, O2 sat 98% room air . HEENT: No eye discharge or redness. Nose and ears are normal. Oropharynx is grossly negative. NECK: No mass. CHEST: Fairly clear. CARDIOVASCULAR: S1, S2 normal. ABDOMEN: Soft, nondistended, nontender. EXTREMITIES: No leg edema. NEUROLOGIC: The patient is awake, alert, fairly oriented with no gross focal deficit. IMPRESSION: 1. Symptomatic anemia. We will give 1 more unit of PRBC. 2. Bilateral breast cancer. Awaiting surgery as well as chemotherapy. 3. Iron deficiency anemia, etiology unknown. The patient is being followed by GI and hematology/onc ology. So far, stool occult has been negative. The patient will be started on proton pump inhibitor for esophagitis as recommended by GI. Dictated By: WU CAIN MD AB/NTS Conf#: [id number] DID#: [id number] CC: WU CAIN MD; WILIAM MORALES MD;*EndCC*
[2018-11-06 01:09] VITALS: BP 105/60; PULSE 60; RESP 17
[2018-11-06 03:33] VITALS: BP 113/58; PULSE 72; RESP 16
--- NOTE | 2018-11-06 05:45 | NUR ---
PT IS NPO FOR PORT A CATH PLACEMENT, ANTS TO TAKE PROTONIX AFTER PROCEDURE.
--- NOTE | 2018-11-06 05:46 | NUR ---
EOSS. NO ACUTE EVENTS OVERNIGHT. PT IN STABLE CONDITION. PT RECEIVED YESTERDAY 1 UNIT OF PRBC, NO REACTION DURING TRANSFUSION. PT WILL HAVE PORT A CATH PLACEMENT TODAY FOR CHEMOTHERAPY. NPO . CONTINUE PLAN OF CARE.
[2018-11-06] MEDS ORDERED: PANTOPRAZOLE (EC) 40 MG TAB PO SCH (06:00)
[2018-11-06 07:40] VITALS: BP 106/56; PULSE 58; RESP 18
[2018-11-06] MEDS: MINERAL OIL 30ML CUP PO SCH ×2 (09:00→13:00)
[2018-11-06] MEDS ORDERED: LIDOCAINE 1%/EPI (1:100,000) (MDV) 20 ML ONE (11:47)
--- NOTE | 2018-11-06 11:54 | NUR ---
OFF UNIT RECEIVED PT NPO FOR POC INSERTION, A/A/OX4. PT COMPLIANT, INFORMED CONSENT SIGNED. OFF UNIT TO RADIOLOGY FOR PAC INSERTION AT THIS TIME.
--- NOTE | 2018-11-06 12:15 | NUR ---
CONDITION PER PT'S COMMENT, SHE STATED "A DOCTOR TOLD ME I CAN'T GET CHEMO IF MY HG IS <9". SHE IS ANXIOUS ABOUT HAVING DELAYS ON D/C DUE TO HH IF 8.5.2 AND NOT MAKING IT TO HER APPOINTMENT WITH DR RANGEL TOMORROW. CONTACTED DR RANGEL AT THIS TIME, MADE AWARE OF TODAY'S HH. PER , OK TO DC HOME TODAY FOR CHEMO ADMINISTRATION IN HIS OFFICE TOMORROW.
[2018-11-06] MEDS ORDERED: DIPHENHYDRAMINE 50 MG INJ ONE (12:20)
[2018-11-06] MEDS ORDERED: FENTAnyl 50 MCG/ML VIAL ONE (12:20)
[2018-11-06] MEDS ORDERED: CEFAZOLIN 1 GM/50 ML (PMX) 50 ML IVPB ONE (12:20)
--- NOTE | 2018-11-06 13:26 | PN ---
Date/Time of Note Date/Time of Note DATE: 11/06/18 TIME: 13:23 Outpatient Progress Note Chief Complaint breast cancer weakness HPI anemic will get port today no bleeding mild SOB Physical Exam Vital Signs Date Temp Pulse Resp B/P (MAP) Pulse Ox O2 O2 Flow FiO2 Time Delivery Rate 11/06/18 98.3 58 18 106/56 100 Room Air 07:40 (73) 11/06/18 2.0 03:33 Intake and Output 11/05/18 11/05/18 11/06/18 1515:00 23:00 07:00 IntakeIntake Total 350 ml 350 ml BalanceBalance 350 ml 350 ml PALE S1S2 Clear lungs Left breast mass cancer soft abdomen Result Diagram: 11/06/18 0421 11/04/18 1523 Allergies Coded Allergies: aspirin (Verified Allergy, Unknown, 11/02/18) Assessment/Plan 38 yo F with no PMH with 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 # Severe anemia with iron deficiency -Patient responded to 1 unit of blood transfusion and had a reaction to the second unit. -continue with 5 doses of IV iron. -The question is why she has this iron deficiency. She denies any bleeding or menorrhagia and there is no bleeding from the breast. The patient is not vegan. EGD / Colonoscopy scheduled for today -Discussed with patient that we need her Hgb to be at least 9 in order for her to receive chemotherapy as she will have cytopenias with the chemotherapy and we cannot have her drop to less than 7. # Clinical stage III left sided invasive ductal carcinoma with contralateral lymph node and LCIS (Er+/WA+/hcv9vkd negative) -pt scheduled for out patient PET CT on . there is a high likelihood that this has already metastasized -Once stable, the patient can proceed to TAC chemotherapy which can be given in the outpatient setting. -The medications are authorized as patient has an appointment with us on Monday or Monday. -Today port a cath placement - Blood transfusion before chemotherapy Hb 8 -Hb should be > 9 to get chemotherapy Medications Home Meds No Active Prescriptions or Reported Meds CASPER RANGEL Nov 06, 2018 13:26
[2018-11-06] MEDS ORDERED: ACETAMINOPHEN 325 MG TAB PO ONE (13:30)
[2018-11-06] MEDS ORDERED: METHYLPREDNISOLONE 40 MG INJ IV ONE (13:30)
[2018-11-06] MEDS ORDERED: DIPHENHYDRAMINE 50 MG INJ IV ONE (13:30)
--- NOTE | 2018-11-06 13:43 | HPN ---
Date/Time of Note Date/Time of Note DATE: 11/06/18 TIME: 13:43 Interval H&P Admission Note Pt. seen H&P reviewed: No system changes JULIUS GILLETTE MD Nov 06, 2018 13:43
[2018-11-06 14:42] VITALS: BP 123/67; PULSE 81; RESP 18
[2018-11-06] MEDS ORDERED: DOCU-144 PO (14:48)
[2018-11-06] MEDS ORDERED: FER325 PO (14:48)
[2018-11-06] MEDS ORDERED: PANT40TA4 PO (14:48)
[2018-11-06] MEDS: SOD FERRIC GLUC COMPLX 125 MG in SOD CHLORIDE 0.9% 100 ML IVPB SCH (14:53)
--- NOTE | 2018-11-06 15:50 | PN ---
DATE: 11/06/2018 SUBJECTIVE: No specific complaint. Today, had a Port-A-Cath inserted in the radiology department by invasive radiologist, Dr. Delgado in preparation for the patient to receive chemotherapy as of tomorrow. Also, Dr. White, the engagement director/oncologist from the group has seen the patient today and recommended that patient receive 1 more unit of packed blood cells so that the hemoglobin can get up to 9 because they are not going to start chemotherapy for hemoglobin less than 9 and also patient has been receiving IV Ferric salt in the past 4 days in order to replenish the depleted iron reserve and have the patient to start having hematopoiesis. OBJECTIVE: GENERAL: Awake, alert, oriented. HEART: Regular. LUNGS: Clear. Dressing over the Port-A-Cath is intact over the right upper chest wall. ABDOMEN: Soft. EXTREMITIES: There is no pitting edema, no calf tenderness. ASSESSMENT AND PLAN: A 38-year-old female with advanced cancer of left breast and also cancer of right breast with positive tumor in the right axillary lymph node, is estrogen and progesterone positive, HER-2 negative. The patient is a candidate to receive chemotherapy as per oncology engagement director. The regimen is going to PAC chemotherapy which they are going to give in the outpatient setting and the patient is going to have PET/CT scan on this week. So, the patient has received treatment and also investigation possible because of severe iron deficiency anemia which EGD was negative. A colonoscopy grossly was negative, but according to the GI colleague, the preparation was not good, so assumption is that for unknown reason the patient has depleted her iron stores and is currently restored by the treatment she received in the hospital in the past 4 or 5 days and tomorrow, the patient will receive chemotherapy and today after getting blood transfusion, she is going to be discharged. Dictated By: DESIREE CUEVAS MD PS/NTS Conf#: [id number] DID#: [id number] CC: WU CAIN MD; WILIAM MORALES MD;*EndCC* MTDD
--- NOTE | 2018-11-06 16:26 | NUR ---
PRBC TRANSFUSION PT TO RECEIVE 1 UNIT OF PRBC PRIOR TO DC HOME TONIGHT. DR RANGEL AWARE PT HAD PREVIOUS TX REACTION. PT PREMEDICATED WITH TYLENOL, BENADRYL AND SOLU-MEDROL PER MD ORDERS. PRBC INFUSION STARTED AT 75 ML/HR, AND WILL TITRATE TOLERATED. WILL MONITOR CLOSELY THROUGHOUT TRANSFUSION DUE TO HX OF REACTION.
--- NOTE | 2018-11-06 18:51 | NUR ---
END OF SHIFT NOTE PT RESTING IN BED, WITH PRBC INFUSING. NO S/S OF TRANSFUSION REACTION AT THIS TIME. PT TO BE DC'D HOME PER MD ORDERS. RX FAXED TO [facility] AND ALREADY FILLED AND AT BEDSIDE. [facility] TO PROVIDE TAXI VOUCHER FOR RIDE HOME. SAFETY MAINTAINED THROUGHOUT SHIFT. BED IN LOW POSITION, CALL LIGHT IN REACH. WILL CONTINUE MONITORING AND WILL ENDORSE POC TO CHRISTIANO KOENIG.
--- NOTE | 2018-11-06 19:48 | NUR ---
BLOOD TRANSFUSION IS FINISHED AT 1930, NO REACTIONS NOTED.PATIENT WILL WAIT AFTER AN HOUR OR MORE BEFORE D/C. PATIENT GOT HER MEDS FROM OUTSIDE PHARMACY. PATIENT GIVEN PLASTIC COVERS SMALL AND LARGE SIZES X4 TO COVER THE NIRAJ CATH DRESSING BEFORE TAKING SHOWER.
[2018-11-06 20:20] VITALS: BP 115/88; PULSE 57; RESP 16
--- NOTE | 2018-11-06 20:22 | NUR ---
NO BLEEDING ON THE RIGHT CHEST NIRAJ CATH PLACEMENT. NO REACTIONS FROM THE BLOOD TRANSFUSION.
--- NOTE | 2018-11-06 21:05 | NUR ---
PATIENT'S IV REMOVED,TIP IS INTACT. D/C HOME. VOUCHER GIVEN TO THE PATIENT. DARLINE BAIRES.
--- NOTE | 2018-11-06 21:09 | NUR ---
NO BLOOD TRANSFUSION REACTIONS NOTED.AFEBRILE. V/S WITHIN NORMAL LIMITS. STABLE.
--- NOTE | 2018-11-06 23:22 | DS ---
Date/Time of Note Date/Time of Note DATE: 11/06/18 TIME: 23:13 Discharge Summary Admission/Discharge Info Admit Date/Time Nov 02, 2018 at 15:52 Discharge Date/Time Nov 06, 2018 at 20:55 Patient Condition: Stable Hx of Present Illness The patient is a 38-year-old female who was diagnosed with bilateral breast cancer on biopsy done as an outpatient. The patient is followed by Dr. Yo as an outpatient. The patient recently was noted to have anemia and her hemoglobin has dropped to 6.3 today. The patient is being admitted for blood transfusion because of symptomatic anemia. The patient denied any headache, dizziness, syncope. The patient gets short of breath on exertion and easily gets tired. The patient did not have any rectal bleed. No history of hematemesis. No history of menorrhagia. The patient was sent to ER and was noted to have hemoglobin of 6.3. Iron panel also revealed iron deficiency anemia as evidenced by a ferritin of only 4.1. Vitamin B12 level is 584. The patient is being admitted for further evaluation and management. Hospital Course -Symptomatic anemia. Status post blood transfusion, continue to monitor hemoglobin and hematocrit -Iron deficiency anemia, etiology unknown. Continue iron supplements. The patient is being followed by GI and hematology/oncology. Status post EGD and colonoscopy with suboptimal prep, stool occult has been negative. The patient will be started on proton pump inhibitor for esophagitis as recommended by GI. -Clinical stage III left sided invasive ductal carcinoma with contralateral lymph node and LCIS (Er+/RI+/mui0lrd negative). Patient will undergo chemotherapy followed by mastectomy. Patient is followed by Dr. White in hematology consultation and Dr. Yo in general surgery consultation. -Status post right chest Port-A-Cath placement by radiology on 11/06/2018 for initiation of chemotherapy Plan of care discussed with Dr. Patterson [place] Meds Active Scripts Docusate Sodium* (Colace*) 100 Mg Capsule, 100 MG PO DAILY, #30 CAP Prov:JUAN SIMON 11/06/18 Ferrous Sulfate* (Ferrous Sulfate*) 325 Mg Tabec, 325 MG PO BID for 30 Days, TAB Prov:JUAN SIMON 11/06/18 Pantoprazole* (Pantoprazole*) 40 Mg Tablet., 40 MG PO DAILY@06 for 30 Days Prov:JUAN SIMON 11/06/18 Follow-up Plan DC after blood transfusion, follow-up with Dr. White in for initiation of chemotherapy tomorrow Primary Care Provider Reji Yo MD Time spent on discharge: > 30 minutes Pending Labs Laboratory Tests Test 11/06/18 04:21 11/06/18 07:32 White Blood Count 6.3 10^3/ul (4.8-10.8) Red Blood Count 4.24 10^6/ul (4.20-5.40) Hemoglobin 8.5 g/dl (12.0-16.0) Hematocrit 29.2 % (37.0-47.0) Mean Corpuscular Volume 68.9 fl (82.0-101.0) Mean Corpuscular Hemoglobin 20.0 pg (29.0-33.0) Mean Corpuscular 29.1 g/dl (32.0-37.0) Hemoglobin Concent Red Cell Distribution Width 28.5 % (11.5-14.5) Platelet Count 177 10^3/UL (140-415) Mean Platelet Volume fl (7.4-10.4) Immature Granulocytes % 0.300 % (0.001-0.429) Neutrophils % 62.9 % (39.0-77.0) Lymphocytes % 27.2 % (15.0-51.0) Monocytes % 7.2 % (0.0-11.0) Eosinophils % 1.6 % (0.0-7.0) Basophils % 0.8 % (0.0-2.0) Nucleated Red Blood Cells % 0.0 /100WBC (0.0-0.0) Immature Granulocytes # 0.020 10^3/ul (0.0-0.031) Neutrophils # 3.9 10^3/ul (1.6-7.5) Lymphocytes # 1.7 10^3/ul (0.8-2.9) Monocytes # 0.5 10^3/ul (0.3-0.9) Eosinophils # 0.1 10^3/ul (0.0-0.5) Basophils # 0.1 10^3/ul (0.0-0.1) Nucleated Red Blood Cells # 0.0 10^3/ul (0.0-0.0) Lab Scanned Report BLOOD TRANSFUSION JUAN SIMON Nov 06, 2018 23:22
== END 2018-11-06 20:55 | disposition home or self-care (01) | DRG 812 ==
LOC: E/R 12:17 → MS1 15:52
PROVIDERS: ADMIT Surgery Surgical Oncology; ATTEND Surgery Surgical Oncology
PROC: 30233N1 Transfusion of Nonautologous Red Blood Cells into Peripheral Vein, Percutaneous Approach (ICD-10-PCS; 2018-11-02)
PROC: 0DJ08ZZ Inspection of Upper Intestinal Tract, Via Natural or Artificial Opening Endoscopic (ICD-10-PCS; 2018-11-05)
PROC: 0DJD8ZZ Inspection of Lower Intestinal Tract, Via Natural or Artificial Opening Endoscopic (ICD-10-PCS; 2018-11-05)
PROC: 0JH60XZ Insertion of Tunneled Vascular Access Device into Chest Subcutaneous Tissue and Fascia, Open Approach (ICD-10-PCS; principal; 2018-11-06)
PROC: 02H633Z Insertion of Infusion Device into Right Atrium, Percutaneous Approach (ICD-10-PCS; 2018-11-06)
DX: D50.9 Iron deficiency anemia, unspecified (principal); C77.3 Secondary and unspecified malignant neoplasm of axilla and upper limb lymph nodes; C50.912 Malignant neoplasm of unspecified site of left female breast; C50.911 Malignant neoplasm of unspecified site of right female breast; Z17.0 Estrogen receptor positive status [ER+]; K20.9 Esophagitis, unspecified; R00.1 Bradycardia, unspecified
CPT/HCPCS: 36415; 36430; 36561; 71046; 76942; 80048; 80053; 81003; 82270; 82607; 82728; 83540; 85014; 85018; 85025; 85049; 85384; 85610; 85730; 86078; 86850; 86900; 86901; 86920; 88305; 88312; C1788; J0690; J1200; J1644; J2916; J2920; J3010; J7040; P9016